=== PATIENT | female | born 1995 | race Caucasian/White ===

== ENCOUNTER 2016-11-02 20:52 | Emergency (ER) | payer SELFPAY ==
[2016-11-02 21:26] VITALS: RESP 16; TEMP 98
--- NOTE | 2016-11-02 21:30 | PDOC ---
Sore Throat/Dental Pain HPI - General Chief Complaint: Sore Throat Stated Complaint: SORE THROAT FOR 12 HORUS Date Seen by Provider: 11/02/16 Time Seen by Provider: 21:27 - History of Present Illness Initial Comments: Patient is presenting to the emergency department complaining of sore throat. She's had multiple episodes of strep throat in the past she thinks she has strep throat currently. She denies fever and chills over. She denies nausea and vomiting. - Patient Home Medications Home Medications: Home Medications Vits W-Ca,Fe,FA(<1Mg) [] 1 tab PO DAILY 08/02/15 Ferrous Gluconate [Fergon] 324 mg PO BID #60 tab 01/22/16 Ibuprofen [Motrin] 800 mg PO Q8H PRN #30 tab 01/22/16 Levonorgestrel [Mirena] 1 each IY ONCE unit 03/08/16 - Patient Allergies Allergies/Adverse Reactions: Allergies Allergy/AdvReac Type Severity Reaction Status Date / Time No Known Drug Allergies Allergy NOT Verified 11/02/16 21:12 APPLICABLE cream soda Allergy HIVES Uncoded 11/02/16 21:12 Past Medical History - heen HEENT History: Denies History Cardiovascular History: Denies History Respiratory History: Asthma Gastrointestinal History: Denies History Genitourinary History: Denies History Endocrine History: Denies History Musculoskeletal History: Denies History Prosthesis or Implant: No Neurological History: Denies History Blood Disorders: Anemia Psychiatric History: Denies History History of Sexually Transmitted Diseases: No Female Reproductive History: Denies History Obstetrical History: Denies History Cancer History: Denies History In Past Year Been Physically Harmed or Verbally Threatened: No History of MDRO: No History of Other Communicable Diseases: No Tobacco Use: Never Smoker Alcohol Use: None Substance Use Type: None Previous Surgical History: No Significant Family History: Asthma, Heart disease, Cancer, Diabetes, Hypertension, Seizures ROS - Limitations ROS Limitations: No Limitations Cardiovascular: REPORTS: Denies Cardiac Symptoms Respiratory: REPORTS: Denies Resp Symptoms Sore Throat/Dental Pain Exam - General Appearance General Appearance: REPORTS: Alert, No Acute Distress - HEENT Head / Face: POSITIVE: Atraumatic Eyes: POSITIVE: Inspection Normal Ears: POSITIVE: Ears Normal Inspection Nose: POSITIVE: No Apparent Trauma Oropharynx: POSITIVE: Pharyngeal Erythema - Respiratory Respiratory: REPORTS: No Respiratory Distress Sore Throat/Dental Progress - Results Reviewed by me Lab Results Reviewed: Yes Lab Results:: neg rapid strep - Patient's Progress MDM / ED Course: This patient has a negative rapid strep test has some evidence of pharyngitis otherwise is doing okay. This is likely a viral phenomenon however I have told her that she is here back in with her primary care provider to consider formal throat culture or re-checking rapid strep if her symptoms persist. Patient Care Time - Estimated PCT Patient Care Time (In Minutes): 20 Vital Signs - Recent Vital Signs Vital Signs: Vital Signs (Last 8 hours) Temp Pulse Resp BP Pulse Ox 11/02/16 20:52 98.0 F 116 H 16 118/79 96 - VS Reviewed Vital Signs Reviewed: Yes (heart rate is 90 with my exam) Discharge Clinical Impression: Viral disease, Pharyngitis Discharge Disposition: Discharged to Home Condition: Stable Patient Instructions Given at Discharge: Pharyngitis (ED), Viral Syndrome (ED) Additional Instructions: Follow-up with primary care provider in the next 3 or 4 days if not improving. Return here with any substantial worsening or new or different complaints. Follow Up With: TATA DRIVER [Primary Care Provider] -
== END 2016-11-02 21:30 | disposition home or self-care (01) ==
LOC: ER 20:52
DX: B34.9 Viral infection, unspecified (principal); J02.9 Acute pharyngitis, unspecified
CPT/HCPCS: 87802; 99282

== ENCOUNTER → 2017-01-30 | Outpatient (CLI) | payer SELFPAY ==
[2017-01-30 14:56] LABS: BASOPHILS # (AUTO) 0.02 10*3/UL; BASOPHILS % (AUTO) 0.3 % (0-1); EOSINOPHILS # (AUTO) 0.03 10*3/UL; EOSINOPHILS % (AUTO) 0.4 % (0-8); HEMATOCRIT 38.2 % (37.0-47.0); HEMOGLOBIN 13.2 g/dL (12.0-16.0); LYMPHOCYTES # (AUTO) 1.55 10*3/uL; MEAN CORPUSCULAR HEMOGLOBIN 31.7 PG (27-31); MEAN CORPUSCULAR HGB CONC 34.6 g/dL (33-37); MEAN CORPUSCULAR VOLUME 91.6 FL (81-99); MEAN PLATELET VOLUME 10.4 FL (7.4-12.2); MONOCYTES # (AUTO) 0.51 10*3/UL (0.3-0.8); NEUTROPHILS # (AUTO) 5.13 10*3/UL; NEUTROPHILS % (AUTO) 70.8 % (50-80); RED BLOOD COUNT 4.17 10^6/uL (4.20-5.40)
[2017-01-30 14:57] LABS: PLATELET MORPHOLOGY COMMENT NORMAL MORPHOLOGY (NORM); RBC MORPHOLOGY COMMENT NORMAL MORPHOLOGY (NORM); WBC MORPHOLOGY COMMENT NORMAL MORPHOLOGY (NORM)
[2017-01-30 15:36] LABS: HIV ANTIBODY NEGATIVE (N); HIV-1 P24 ANTIGEN NEGATIVE (N)
[2017-02-01 11:36] LABS: HEP B SURFACE AG Negative (Negative)
== END ==
LOC: MOB LAB 13:33
PROVIDERS: ATTEND Family Medicine
DX: Z36 Encounter for antenatal screening of mother (principal)
CPT/HCPCS: 36415; 80081; 86900; 86901; 87088

== ENCOUNTER → 2017-01-30 | Outpatient (CLI) | payer SELFPAY ==
--- NOTE | 2017-01-30 13:42 | DI ---
US OB LESS THAN 14 WEEKS,01/30/2017 9:51 AM: Clinical History: Established gestational age. Previous Exam: None at this facility. Findings: Multiple grayscale and color Doppler sonographic images are obtained through the pelvis, and demonstr ate a single live intrauterine gestation. [place]-rump length measured 22 mm corresponding with an estimated gestational age of 8 weeks 6 days. Detected Doppler heart tones measured 176 beats per minute. The right ovary measures 2.5 x 1.7 x 2.3 cm while the left ovary was not well seen. The cervix is long and closed measuring 5.7 cm in length. Impression: Single live intrauterine gestation with estimated gestational age of 9 weeks 5 days.
== END ==
LOC: US 09:49
PROVIDERS: ATTEND Family Medicine
DX: Z36 Encounter for antenatal screening of mother (principal)
CPT/HCPCS: 76801

== ENCOUNTER → 2017-03-08 | Outpatient (CLI) | payer SELFPAY | LOC: MOB LAB 11:05 | PROVIDERS: ATTEND Family Medicine | DX: Z36 Encounter for antenatal screening of mother (principal); Z3A.15 15 weeks gestation of pregnancy | CPT/HCPCS: 87491; 87591 ==

== ENCOUNTER 2017-08-25 00:49 | Inpatient (IN) ==
[2017-08-25] MEDS ORDERED: Famotidine Inj 20 MG in Normal Saline Flush 10 ML IVP PRN ×4 (01:29)
[2017-08-25] MEDS ORDERED: NORMAL SALINE 10 ML SYRINGE FLUSH IVP PRN ×2 (01:29→20:10)
[2017-08-25] MEDS ORDERED: BUTORPHANOL TARTRATE 2 MG/1 ML VIAL IVP PRN (01:29)
[2017-08-25] MEDS ORDERED: METHYLERGONOVINE MALEATE 0.2 MG/1 ML VIAL IM PRN (01:29)
[2017-08-25] MEDS ORDERED: Metoclopramide Inj 10 MG/2 ML VIAL IV PRN (01:29)
[2017-08-25] MEDS ORDERED: OXYTOCIN 10 UNIT/1 ML IM PRN (01:29)
[2017-08-25] MEDS ORDERED: MISOPROSTOL 200 MCG TABLET RECTAL PRN (01:29)
[2017-08-25] MEDS ORDERED: Carboprost Inj 250 MCG/ML AMP IM PRN (01:29)
[2017-08-25] MEDS ORDERED: NORMAL SALINE FLUSH IVP PRN (01:29)
[2017-08-25] MEDS ORDERED: Nalbuphine Inj 20 MG/ML Ampule IVP PRN ×2 (01:29→20:10)
[2017-08-25] MEDS ORDERED: LIDOCAINE W/ SODIUM BICARB 0.5 ML SYR SUBD PRN (01:29)
[2017-08-25] MEDS ORDERED: Phenylephrine Inj 50 MCG in Normal Saline Flush 0.5 ML IVP PRN (01:29)
[2017-08-25] MEDS ORDERED: CALCIUM CARBONATE 500 MG (TUMS) CHEWABLE TABLET PO PRN ×2 (01:29→20:10)
[2017-08-25] MEDS ORDERED: ONDANSETRON 4 MG/2 ML VIAL IVP PRN ×2 (01:29→20:10)
[2017-08-25] MEDS ORDERED: ePHEDrine Inj 5 MG in Normal Saline Flush 1 ML IVP PRN (01:29)
[2017-08-25] MEDS ORDERED: TERBUTALINE SULFATE 1 MG/1 ML SDV SUBCUT PRN (01:29)
[2017-08-25] MEDS ORDERED: CITRIC ACID/SODIUM CITRATE 30 ML CUP PO PRN (01:29)
[2017-08-25] MEDS ORDERED: diphenhydrAMINE 50 MG/1 ML VIAL IVP PRN ×2 (01:29→20:10)
[2017-08-25] MEDS ORDERED: LIDOCAINE HCL 2 % 10 ML JELLY URO-JECT TOPICAL PRN ×2 (01:29→20:10)
[2017-08-25] MEDS ORDERED: Lidocaine 1% 10 MG/ML - 20 ML VIAL SUBCUT PRN (01:29)
[2017-08-25] MEDS ORDERED: CefOXitin Inj 2 GM in Sodium Chloride 0.9% 100 ML IV PRN (01:29)
[2017-08-25] MEDS ORDERED: NALOXONE 0.4 MG/1 ML VIAL IVP PRN (01:29)
[2017-08-25] MEDS ORDERED: NALOXONE IVP PRN (01:29)
[2017-08-25] MEDS: Lactated Ringers-OB Dept 1,000 ML PRIMARY IV SCH ×4 (01:30→20:17)
[2017-08-25] MEDS ORDERED: Oxytocin 20 Units + LR 20 UNIT/1,000 ML BAG IV SCH ×3 (01:30→20:10)
[2017-08-25 01:43] LABS: Hematocrit [HCT] 33.5 % (37.0-47.0); MEAN CORPUSCULAR HEMOGLOBIN 30.8 PG (27-31); MEAN CORPUSCULAR HGB CONC 32.8 g/dL (33-37); MEAN CORPUSCULAR VOLUME 93.8 FL (81-99); MEAN PLATELET VOLUME 9.9 FL (7.4-12.2); RED BLOOD COUNT 3.57 10^6/uL (4.20-5.40)
[2017-08-25] MEDS ORDERED: Misoprostol Tab 100 MCG TAB VAGINAL ONE (02:12)
[2017-08-25] MEDS ORDERED: Misoprostol Tab 100 MCG TAB ONE (02:13)
[2017-08-25] MEDS ORDERED: Naloxone Inj 0.01 MG in Normal Saline Flush 1 ML IVP PRN (02:15)
--- NOTE | 2017-08-25 11:19 | OB.PROGRES ---
Date and Time of Service: 08/25/17 @ 0830 Interval History: Pt is a 22 yo at 39 3/7 weeks who presents for elective induction at term. Her thus far has been uncomplicated. GBS is negative. Her 1 hour glucose was 133. Her blood type is A+. Her last was complicated by gestational HTN that progressed to severe pre-eclampsia with anuria. She had a vaginal delivery of a 6#3oz baby with a second degree vaginal laceration. She was on magnesium sulfate for most of her labor. Because of this, the pt took a baby aspirin since 14 weeks during this . She is currently experiencing no pain, even with contractions, just stating that she can feel that they are there. Objective - Cervical Exam Cervical Exam: /-2 [place]: every 2-3 minutes, palpating moderate Heart Rate: 150s baseline, moderate variabilty, + accels. Heart Rate Interpretation Category: Category I - Labs CBC and BMP: 08/25/17 01:40 - Vital Signs Last Taken Vital Signs: Vital Signs - Last Taken Temperature 98.5 F 08/25/17 08:00 Pulse Rate 82 08/25/17 09:15 Respiratory Rate 12 08/25/17 09:15 Blood Pressure 122/72 08/25/17 09:15 Pulse Ox 95 08/25/17 09:15 Assessment and Plan - Patient Problems (1) Term Current Visit: Yes Status: Acute Code(s): Z34.80 - Encounter for supervision of other normal , unspecified trimester - Assessment / Plan Additional Assessment/Plan Details: -AROM completed at approximately 1045, clear fluid. IUPC placed without difficulty. -GBS negative. -plans to have no epidural for pain control. -anticipate normal vaginal delivery.
[2017-08-25] MEDS: fentaNYL Inj 100 MCG/2 ML VIAL IV PRN ×2 (15:59→17:08)
--- NOTE | 2017-08-25 17:09 | OB.PROGRES ---
Date and Time of Service: 08/25/17 @ 1630 Interval History: Pt is pretty uncomfortable with contractions, has received 1 dose of IV fentanyl with decent relief of contraction pain. Objective - Cervical Exam Cervical Exam: 5/-1 to -2/cephalic/soft [place]: every 2-3 minutes, palpating moderate to hard. Heart Rate: 130s baseline, moderate variability, occasional variable decels Heart Rate Interpretation Category: Category II - Labs CBC and BMP: 08/25/17 01:40 - Vital Signs Last Taken Vital Signs: Vital Signs - Last Taken Temperature 98.4 F 08/25/17 13:00 Pulse Rate 77 08/25/17 13:00 Respiratory Rate 16 08/25/17 13:00 Blood Pressure 128/74 08/25/17 13:00 Pulse Ox 97 08/25/17 15:00 Assessment and Plan - Patient Problems (1) Term Current Visit: Yes Status: Acute Code(s): Z34.80 - Encounter for supervision of other normal , unspecified trimester - Assessment / Plan Additional Assessment/Plan Details: -IUPC replaced due to not reading correctly. -FSE placed by the nurse because of difficulty keeping baby on the monitor due to maternal position changes. -pitocin augmentation continues. -pt declining epidural, which may help her pelvis relax. Will continue IV fentanyl until we are closer to delivery. -GBS negative. -anticipate normal vaginal delivery.
[2017-08-25] MEDS ORDERED: diphenhydrAMINE 25 MG CAPSULE PO PRN (20:10)
[2017-08-25] MEDS ORDERED: LANOLIN HPA 40 GM TUBE TOPICAL PRN (20:10)
[2017-08-25] MEDS ORDERED: BENZOCAINE/MENTHOL SPRAY 56 GM BOTTLE TOPICAL PRN (20:10)
[2017-08-25] MEDS ORDERED: Ondansetron ODT Tab 4 MG TAB PO PRN (20:10)
[2017-08-25] MEDS ORDERED: MISOPROSTOL 200 MCG TABLET RECTAL ONE (20:10)
[2017-08-25] MEDS ORDERED: GLYCERIN/WITCH HAZEL 1 BOX TOPICAL PRN (20:10)
[2017-08-25] MEDS ORDERED: HYDROcodone-APAP 5 MG -325 MG TABLET PO PRN (20:10)
[2017-08-25] MEDS ORDERED: DIPH,PERTUSS,TET(ADACEL) VAC/PF 0.5 ML (Tdap) IM ONE (20:10)
[2017-08-25] MEDS ORDERED: ACETAMINOPHEN 325 MG TABLET PO PRN (20:10)
--- NOTE | 2017-08-25 22:01 | OB.DEL.SUM ---
Delivery Note Delivery Summary: Pt was admitted for elective induction at 39 3/7 weeks. She received 1 dose of cytotec and then was augmented with pitocin. She was 3 cm with artificial rupture of membranes this morning with clear fluid at 1045. She progressed slowly through latent labor and was 8 cm at 1750. She was complete a short time later. At that time, baby was noted to have some decelerations, though it was difficult to tell what type because of the extremely hard time we had monitoring the pt's contractions due to her body habitus and the position of the baby. She began pushing around 1805, but then baby was noted to be bradycardic to the 60s-70s. Pt was moved into several different positions, including on her sides and on her hands and knees, which didn't relieve the bradycardia. The OR crew was called for a STAT and Dr. Bertrand was called to come in to assist from an OB standpoint and Dr. Conde was called in to assist from a pediatric standpoint. The pt was moved to the operative room. After she was in the OR, and while awaiting the arrival of the OR crew, the pt remained on the portable monitor and was still pushing with contractions. The baby moved from a straight OP presentation to what felt like an LUCY presentation. With much encouragement while awaiting the OR crew, the pt delivered a viable male , over an intact perineum in the LUCY presentation. There was a tight nuchal cord x 1. The baby's left arm was noted to be folded across his chest. The shoulders were snug in the pelvis, but delivered without additional maneuvers. The baby's nose and mouth were suctioned after delivery and the cord was doubly clamped by myself and cut by one of the nurses. Time of delivery was 1830. He was handed off to one of the waiting nurses. Cord blood and cord gases were obtained. The placenta delivered spontaneously and intact, with a 3 vessel cord, at 1836. The pt was moved into position in the [facility] to more fully examine her cervix and vagina for any lacerations as her bleeding at that time was brisk. 20 mU of pitocin were started after delivery of the placenta, but her IV went bad, so cytotec 1000 mcg was given rectally. Bimanual massage was also completed and the bladder was emptied from only about 25 cc of urine. The cervix was grasped with the ring forceps and appeared to be intact. The vagina and perineum were examined and no lacerations were noted. Apgars were 4, 6, 6, and 7. Baby weighed 7#5oz and was 20.25 inches long. Baby will be monitored closely for any issues overnoc. Mom tolerated delivery well and is in stable condition at this time. - Patient Problems (1) Term Current Visit: Yes Status: Acute Code(s): Z34.80 - Encounter for supervision of other normal , unspecified trimester
[2017-08-25] MEDS: IBUPROFEN 800 MG TABLET PO PRN (22:06)
[2017-08-26] MEDS: DOCUSATE 100 MG CAPSULE PO SCH ×3 (01:45→20:00)
[2017-08-26 05:01] LABS: Hematocrit [HCT] 27.9 % (37.0-47.0); Hemoglobin [HGB] 9.2 g/dL (12.0-16.0); MEAN CORPUSCULAR HEMOGLOBIN 30.9 PG (27-31); MEAN CORPUSCULAR VOLUME 93.6 FL (81-99); MEAN PLATELET VOLUME 9.3 FL (7.4-12.2); RED BLOOD COUNT 2.98 10^6/uL (4.20-5.40)
[2017-08-26] MEDS: Prenatal Multivitamin Tab 1 TAB TAB PO SCH (08:44)
--- NOTE | 2017-08-26 11:49 | OB.PROGRES ---
Subjective Post Op Day: 1 Pain Management: PO Goetz Catheter: No Flatus: Yes Diet: Regular Feeding Method: Exculsively Ambulating: Yes Concerns / Additional Information: Pt reports feeling good today! Mild lochia, after having pretty heavy flow right after delivery and into the noc yesterday. Breast feeding is going well. Has voided since delivery, but no bowel movement yet. Objective - General General Appearance: POSITIVE: No Acute Distress, Cooperative - Cardiovacular Cardiovascular Exam: POSITIVE: RRR, No Murmur Edema: +2 Pedal Edema Extremities: Negative Betzaida's - Bilaterally - Respiratory Respiratory Exam: POSITIVE: Clear to Auscultation - Bilaterally, Breathing Non Labored - Abdomen Bowel Sounds: Present Assesstment / Plan (1) Term Current Visit: Yes Status: Acute (2) Status post vaginal delivery Current Visit: Yes Status: Acute Assessment / Plan: -routine cares. -will start iron for mild anemia post-delivery. -breast feeding going well. -A+ blood type. -rubella immune. -likely d/c home tomorrow.
[2017-08-26] MEDS: IBUPROFEN 800 MG TABLET PO PRN (14:30)
[2017-08-26] MEDS: FERROUS GLUCONATE 324 MG TABLET PO SCH ×2 (14:31→17:32)
[2017-08-27] MEDS: FERROUS GLUCONATE 324 MG TABLET PO SCH ×2 (07:10→15:00)
[2017-08-27] MEDS: DOCUSATE 100 MG CAPSULE PO SCH (08:20)
[2017-08-27] MEDS: Prenatal Multivitamin Tab 1 TAB TAB PO SCH (08:20)
[2017-08-27 08:24] VITALS: BP 119/64; RESP 18; TEMP 97.4; O2SAT 100
--- NOTE | 2017-08-27 13:01 | DCSUMMARY ---
Hospitalization Summary Admit Date: 08/25/17 Discharge Date: 08/27/17 Primary Diagnosis:: Term intrauterine Delivery Type: Vaginal Hospital Course: Pt was admitted for elective induction at term. She had a vaginal delivery on . For details of the delivery, please see delivery note elsewhere in the chart. She has had a very uneventful course with the exception of a mild anemia, for which she was started on ferrous gluconate. On the day of discharge, she is up and around, independent in her activities of daily living, tolerating a regular diet, voiding and stooling without complication. She is requesting discharge home. / Postop Complications: none, see above. Complications: Baby boy had an uneventful course after delivery. His head circumferences were followed for 12 hours post-delivery due to a large cephalohematoma that had developed. He did have some issues with the circumcision, details of which are in the circ note in the baby's chart. Exam - Vitals Vital Signs: Vital Signs Temperature 97.4 F Temperature Source Oral Pulse Rate [Apical] 94 Pulse Rate [Pulse Oximeter] 95 Pulse Rate 88 Respiratory Rate 18 Blood Pressure [Left Arm] 114/56 Blood Pressure [Right Arm] 119/64 Blood Pressure 120/56 Pulse Ox 100 Oxygen Flow Rate [1 of 1] 10 Oxygen Delivery Method Room Air Height 5 ft 1 in Weight 213 lb 6.4 oz - General General Appearance: No Acute Distress, Cooperative - Head Head Exam: Normal Inspection - Respiratory Respiratory Exam: POSITIVE: Clear to Auscultation - Bilaterally, Breathing Non Labored - Cardiovascular Cardiovascular Exam: POSITIVE: RRR, No Murmur - GI/Abdominal GI/Abdominal Exam: POSITIVE: Normal Bowel Sounds, Non Tender, Non Distended, Soft - Extremities Extremities Exam: POSITIVE: Normal Inspection, Normal Capillary Refill - Neurological Neurological Exam: POSITIVE: Alert, Oriented x 3 - Psychiatric Psychiatric Exam: POSITIVE: Normal Affect - Integumentary Integumentary Exam: POSITIVE: Normal Color, Warm, Dry Patient Problems - Patient Problem List (1) Term Current Visit: Yes Status: Acute Code(s): Z34.80 - Encounter for supervision of other normal , unspecified trimester Category: Medical (2) Status post vaginal delivery Current Visit: Yes Status: Acute Category: Medical
== END 2017-08-27 15:45 | disposition home or self-care (01) | DRG 775 ==
LOC: OBIP 01:35
PROVIDERS: ADMIT Family Medicine; ATTEND Family Medicine